=== PATIENT | male | born 1990 | race Caucasian/White ===

== ENCOUNTER 2017-02-20 05:57 | Emergency (ER) | payer MEDICAID ==
[~2017-02-20] VITALS: Ht 185.4 cm; Wt 104.3 kg
[2017-02-20 07:15] VITALS: BP 118/67
== END 2017-02-20 07:34 | disposition home or self-care (01) ==
LOC: ER 06:00
DX: S39.012A Strain of muscle, fascia and tendon of lower back, initial encounter (principal); F17.210 Nicotine dependence, cigarettes, uncomplicated; X50.9XXA Other and unspecified overexertion or strenuous movements or postures, initial encounter; Y93.89 Activity, other specified; Y99.8 Other external cause status; Y92.481 Parking lot as the place of occurrence of the external cause
CPT/HCPCS: 72110